=== PATIENT | male | born 1970 | race Caucasian/White ===

== ENCOUNTER 2023-03-03 06:56 | Emergency (ER) | payer BC ==
[~2023-03-03] VITALS: Ht 167.6 cm; Wt 106.4 kg
[2023-03-03] MEDS ORDERED: ALEVE220 M1 PO (07:53)
[2023-03-03] MEDS ORDERED: TYLENOL 325MG325 MG PO (07:54)
[2023-03-03] MEDS ORDERED: GOOD NEIGHBOR200 M3 PO (07:54)
[2023-03-03 08:58] VITALS: BP 145/85
== END 2023-03-03 09:00 | disposition home or self-care (01) ==
LOC: ED 06:56
DX: J06.9 Acute upper respiratory infection, unspecified (principal); Z28.310 Unvaccinated for COVID-19

== ENCOUNTER → 2023-06-07 | Outpatient (CLI) | payer BC ==
[~2023-06-07] MED LIST: ALEVE220 M1 PO; GOOD NEIGHBOR200 M3 PO; TYLENOL 325MG325 MG PO
== END ==
LOC: RAD 07:30
DX: R10.11 Right upper quadrant pain (principal)

== ENCOUNTER → 2023-10-11 | Outpatient (CLI) | payer BC ==
[2023-10-11 11:04] LABS: BASO # 0.06 K/mm3 (0.02-0.10); EOS # 0.52 K/mm3 (0.04-0.40); EOS % 3.5 % (0.0-4.0); HEMATOCRIT 49.2 % (42.0-52.0); HEMOGLOBIN 15.8 g/dL (13.5-18.0); LYMPH# 2.63 K/mm3 (1.50-4.00); MEAN CELL VOLUME 95 fl (78-100); MEAN CORPUSCULAR HEMOGLOBIN 30 pg (27-31); MEAN CORPUSCULAR HGB CONC 32 g/dL (33-37); MEAN PLATELET VOLUME 10.4 fl (7.4-10.4); MONO # 1.29 K/mm3 (0.20-0.80); NEU # 10.21 K/mm3 (1.40-6.50); PLATELET COUNT 228 K/mm3 (130-400); RED BLOOD COUNT 5.19 M/mm3 (4.20-5.60); RED CELL DISTRIBUTION WIDTH 13.6 % (11.5-14.5); WHITE BLOOD COUNT 14.8 K/mm3 (4.8-10.8)
[2023-10-11 11:15] LABS: ALBUMIN 4.4 g/dL (3.5-5.0)
[2023-10-11 11:16] LABS: SODIUM 140 mmol/L (136-145)
[2023-10-11 11:17] LABS: CALCIUM 9.7 mg/dL (8.3-10.5)
[2023-10-11 11:18] LABS: GLUCOSE 105 mg/dL (75-110); TOTAL PROTEIN 6.9 g/dL (6.4-8.3)
[2023-10-11 11:19] LABS: CARBON DIOXIDE 24 mmol/L (22-29)
[2023-10-11 11:20] LABS: TOTAL BILIRUBIN 0.3 mg/dL (0.2-1.2)
[2023-10-11 11:23] LABS: AST-SGOT 18 U/L (5-34)
[2023-10-11 11:24] LABS: ALT/SGPT 24 U/L (0-55)
[2023-10-11 11:25] LABS: MAGNESIUM 2.14 mg/dL (1.60-2.60)
[2023-10-11 11:39] LABS: TROPONIN-I < 0.030 ng/mL (0.00-0.033)
[2023-10-11 12:14] LABS: D-DIMER 0.3 mg/L FEU (0.15-0.50)
== END ==
LOC: LAB 10:47
PROVIDERS: Nurse Practitioner Family
DX: T67.1XXA Heat syncope, initial encounter (principal); R06.02 Shortness of breath; R07.89 Other chest pain

== ENCOUNTER 2023-11-21 09:03 | Emergency (ER) | payer SELFPAY ==
[~2023-11-21] VITALS: Ht 167.6 cm; Wt 103.4 kg
[2023-11-21] MEDS ORDERED: Meclizine 12.5 MG TAB PO ONE (09:45)
[2023-11-21] MEDS ORDERED: NS 1,000 ML IV SCH (09:45)
[2023-11-21 10:04] LABS: BASO # 0.08 K/mm3 (0.02-0.10); EOS # 0.59 K/mm3 (0.04-0.40); EOS % 4.1 % (0.0-4.0); HEMATOCRIT 47.5 % (42.0-52.0); HEMOGLOBIN 15.9 g/dL (13.5-18.0); LYMPH# 2.97 K/mm3 (1.50-4.00); MEAN CELL VOLUME 93 fl (78-100); MEAN CORPUSCULAR HEMOGLOBIN 31 pg (27-31); MEAN CORPUSCULAR HGB CONC 34 g/dL (33-37); MONO # 1.31 K/mm3 (0.20-0.80); NEU # 9.26 K/mm3 (1.40-6.50); PLATELET COUNT 235 K/mm3 (130-400); RED BLOOD COUNT 5.13 M/mm3 (4.20-5.60); RED CELL DISTRIBUTION WIDTH 13.4 % (11.5-14.5); WHITE BLOOD COUNT 14.3 K/mm3 (4.8-10.8)
[2023-11-21 10:16] LABS: ALBUMIN 4.3 g/dL (3.5-5.0); SODIUM 141 mmol/L (136-145)
[2023-11-21 10:18] LABS: CALCIUM 9.6 mg/dL (8.3-10.5)
[2023-11-21 10:19] LABS: GLUCOSE 102 mg/dL (75-110); TOTAL PROTEIN 6.8 g/dL (6.4-8.3)
[2023-11-21 10:20] LABS: CARBON DIOXIDE 23 mmol/L (22-29)
[2023-11-21 10:21] LABS: TOTAL BILIRUBIN 0.4 mg/dL (0.2-1.2)
[2023-11-21 10:24] LABS: AST-SGOT 23 U/L (5-34)
[2023-11-21 10:25] LABS: ALT/SGPT 31 U/L (0-55)
[2023-11-21 10:42] LABS: TROPONIN-I < 0.030 ng/mL (0.00-0.033)
[2023-11-21] MEDS ORDERED: Ondansetron 4 MG/2 ML VIAL IV ONE (11:00)
[2023-11-21] MEDS ORDERED: GOOD NEIGHBOR M25 M1 PO (11:46)
[2023-11-21] MEDS ORDERED: ZOFRAN ODT4 MG PO (11:46)
[2023-11-21] MEDS ORDERED: CLINDAMYCIN 300MG PO (11:48)
[2023-11-21] MEDS ORDERED: NYSTATIN 100MU/M1 ML PO (11:49)
[2023-11-21 12:17] VITALS: BP 134/102
== END 2023-11-21 12:16 | disposition home or self-care (01) ==
LOC: ED 09:03
PROVIDERS: Physician Assistant
DX: K08.89 Other specified disorders of teeth and supporting structures (principal); G89.29 Other chronic pain; R42 Dizziness and giddiness; Z88.0 Allergy status to penicillin
CPT/HCPCS: J2405; J7030

== ENCOUNTER 2024-01-11 15:31 | Emergency (ER) | payer BC ==
[~2024-01-11] VITALS: Ht 167.6 cm; Wt 103.6 kg
[~2024-01-11 15:31] MED LIST changes: +CLINDAMYCIN 300MG PO; +GOOD NEIGHBOR M25 M1 PO; +NYSTATIN 100MU/M1 ML PO; +ZOFRAN ODT4 MG PO
[2024-01-11] MEDS ORDERED: Ketorolac 30 MG/ML VIAL IM ONE (16:00)
[2024-01-11] MEDS ORDERED: CLEOCIN HCL300 MG PO (16:04)
[2024-01-11 16:19] VITALS: BP 149/80
[2024-01-11] MEDS ORDERED: CHLORHEXIDINE118 ML MM (16:20)
[2024-01-11] MEDS ORDERED: Lidocaine 1% (10 MG/ML) 10 ML Multi-Dose IJ ONE (16:24)
== END 2024-01-11 16:31 | disposition home or self-care (01) ==
LOC: ED 15:31
DX: S02.5XXA Fracture of tooth (traumatic), initial encounter for closed fracture (principal); K04.7 Periapical abscess without sinus; K02.9 Dental caries, unspecified; F17.290 Nicotine dependence, other tobacco product, uncomplicated; F17.210 Nicotine dependence, cigarettes, uncomplicated; Z88.0 Allergy status to penicillin; X58.XXXA Exposure to other specified factors, initial encounter
CPT/HCPCS: J0696; J1885